=== PATIENT | female | born 1955 | race Caucasian/White ===

== ENCOUNTER 2024-01-24 09:11 | Observation (INO) | payer MEDICARE ==
--- NOTE | 2024-01-24 09:41 | ERPHSYRPT ---
- History of Present Illness Time Seen by Provider: 01/24/24 09:40 Source: patient Exam Limitations: no limitations Physician History: 68-year-old female presents to our ED for evaluation of generalized weakness and fatigue noncompliant with home medication regimen possible dehydration. Patient states she is currently on Ozempic to lose weight. Patient has lost 69 pounds. Patient is a known diabetic. Patient states recently she has been feeling weak. Patient has not taken her medications because of her weakness. She has not eaten very much. Symptoms are progressive. Symptoms are moderate in intensity. No specific worsening or improving factors. Patient denies pain. She voices no other complaints or concerns at this time. Portions of this note were created with voice recognition technology. There may be grammatical, spelling, punctuation or sound alike errors Timing/Duration: today Severity: moderate Modifying Factors: Improves With: nothing Associated Symptoms: denies symptoms Allergies/Adverse Reactions: morphine Allergy (Verified 01/24/24 09:55) naproxen Allergy (Verified 01/24/24 09:55) Sulfa (Sulfonamide Antibiotics) Allergy (Verified 01/24/24 09:55) Tetanus Vaccines and Toxoid Allergy (Verified 01/24/24 09:55) Home Medications: Amlodipine Besylate 5 mg [Norvasc 5 mg] 5 mg PO DAILY 01/24/24 [History] Fluoxetine HCl [Prozac] 40 mg PO DAILY 01/24/24 [History] Metformin HCl 500 mg [Glucophage 500 MG] 500 mg PO BIDWM 01/24/24 [History] Semaglutide [Ozempic] 1 mg SQ WEEKLY 01/24/24 [History] Simvastatin 20Mg [Zocor 20Mg] 20 mg PO DAILY 01/24/24 [History] - Review of Systems Constitutional: No Symptoms, No Fever, No Chills Eyes: No Symptoms Ears, Nose, & Throat: No Symptoms Respiratory: No Symptoms, No Cough, No Dyspnea Cardiac: No Symptoms, No Chest Pain, No Edema, No Syncope Abdominal/Gastrointestinal: No Symptoms, No Abdominal Pain, No Nausea, No Vomiting, No Diarrhea Genitourinary Symptoms: No Symptoms, No Dysuria Musculoskeletal: No Symptoms, No Back Pain, No Neck Pain Skin: No Symptoms, No Rash Neurological: No Symptoms, No Dizziness, No Focal Weakness, No Sensory Changes Psychological: No Symptoms Endocrine: No Symptoms Hematologic/Lymphatic: No Symptoms Immunological/Allergic: No Symptoms All Other Systems: Reviewed and Negative - Nursing Vital Signs Nursing Vital Signs: Initial Vital Signs Temperature 100.1 F 01/24/24 09:40 Pulse Rate 88 01/24/24 09:40 Respiratory Rate 23 01/24/24 09:40 Blood Pressure 102/71 01/24/24 09:40 O2 Sat by Pulse Oximetry 97 01/24/24 09:40 Pain Scale Pain Intensity 2 - Physical Exam General Appearance: no apparent distress, alert Eye Exam: PERRL/EOMI, eyes nml inspection Ears, Nose, Throat Exam: normal ENT inspection, TMs normal, pharynx normal, moist mucous membranes Neck Exam: normal inspection, non-tender, supple, full range of motion Respiratory Exam: normal breath sounds, lungs clear, airway intact, No respiratory distress Cardiovascular Exam: regular rate/rhythm, normal heart sounds, normal peripheral pulses Gastrointestinal/Abdomen Exam: soft, normal bowel sounds, No tenderness, No mass Back Exam: normal inspection, normal range of motion, No CVA tenderness, No vertebral tenderness Extremity Exam: normal inspection, normal range of motion, pelvis stable Neurologic Exam: alert, oriented x 3, cooperative, normal mood/affect, nml cerebellar function, nml station & gait, sensation nml, No motor deficits Skin Exam: normal color, warm, dry, No rash Lymphatic Exam: No adenopathy O2 Delivery: Room Air - Course Nursing assessment & vital signs reviewed: Yes Ordered Tests: Active Orders 24 hr Category Date Time Status Vb Developer STAT Care 01/24/24 09:39 Active EKG-ER Only STAT Care 01/24/24 09:38 Active IV Insertion STAT Care 01/24/24 09:38 Active Pulse Oximetry (ED) STAT Care 01/24/24 09:38 Active CBC W DIFF Stat Lab 01/24/24 09:50 Completed CMP Stat Lab 01/24/24 09:50 Completed LIPASE Stat Lab 01/24/24 09:50 Completed Lactic Acid Stat Lab 01/24/24 09:38 Completed Manual Differential NC Stat Lab 01/24/24 09:50 Completed TROPONIN Q4H Lab 01/24/24 09:50 Completed TROPONIN Q4H Lab 01/24/24 13:45 Ordered TROPONIN Q4H Lab 01/24/24 17:45 Ordered UA W/RFX UR CULTURE Stat Lab 01/24/24 10:18 Ordered Transfer Order Routine Transfer 01/24/24 Ordered Medication Summary Discontinued Medications Generic Name Dose Route Start Last Admin Trade Name Julian PRN Reason Stop Dose Admin Sodium Chloride 1,000 mls @ 999 mls/hr 01/24/24 09:38 01/24/24 11:40 Sodium Chloride 0.9% 1000 Ml IV 01/24/24 10:38 Infused .Q1H1M STA Infusion Sodium Chloride Confirm 01/24/24 10:29 Sodium Chloride 0.9% 1000 Ml Administered 01/24/24 10:30 Dose 1,000 mls @ ud .ROUTE .STK-MED ONE Lab/Rad Data: Laboratory Result Diagrams 01/24/24 09:50 01/24/24 09:50 Laboratory Results 01/24/24 01/24/24 01/24/24 Range/Units 09:50 09:50 09:50 WBC 6.2 (3.98-10.04) x10^3/uL RBC 3.98 (3.93-5.22) x10^6/uL Hgb 12.7 (11.2-15.7) g/dL Hct 35.6 (34.1-44.9) % MCV 89.4 (79.4-94.8) fL MCH 31.9 (25.6-32.2) pg MCHC 35.7 H (32.2-35.5) g/dL RDW 11.9 (11.7-14.4) % Plt Count 137 L (182-369) x10^3/uL MPV 9.9 (9.4-12.3) fL Segmented Neutrophils 54 H (1.56-6.13) % Lymphocytes (Manual) 27 (24-44) % Monocytes (Manual) 13 H (0.0-12.0) % Atypical Lymphocytes 6 % Platelet Estimate DECREASED (NORMAL) RBC Morphology NORMAL Sodium 127 L (135-145) mmol/L Potassium 3.8 (3.5-5.1) mmol/L Chloride 97 L (98-107) mmol/L Carbon Dioxide 22 (22-30) mmol/L Anion Gap 11.5 (5-15) MEQ/L BUN 11 (7-17) mg/dL Creatinine 0.78 (0.52-1.04) mg/dL Estimated GFR 82.2 ML/MIN Glucose 135 H (74-106) mg/dL Lactic Acid (0.4-2.0) Calcium 8.6 (8.4-10.2) mg/dL Total Bilirubin 0.90 (0.2-1.3) mg/dL AST 67 H (14-36) U/L ALT 37 H (0-35) U/L Alkaline Phosphatase 79 (38-126) U/L Troponin I < 0.012 (0.000-0.033) ng/mL Serum Total Protein 7.1 (6.3-8.2) g/dL Albumin 3.5 (3.5-5.0) g/dL Lipase 263 (23-300) U/L 01/24/24 Range/Units 09:38 WBC (3.98-10.04) x10^3/uL RBC (3.93-5.22) x10^6/uL Hgb (11.2-15.7) g/dL Hct (34.1-44.9) % MCV (79.4-94.8) fL MCH (25.6-32.2) pg MCHC (32.2-35.5) g/dL RDW (11.7-14.4) % Plt Count (182-369) x10^3/uL MPV (9.4-12.3) fL Segmented Neutrophils (1.56-6.13) % Lymphocytes (Manual) (24-44) % Monocytes (Manual) (0.0-12.0) % Atypical Lymphocytes % Platelet Estimate (NORMAL) RBC Morphology Sodium (135-145) mmol/L Potassium (3.5-5.1) mmol/L Chloride (98-107) mmol/L Carbon Dioxide (22-30) mmol/L Anion Gap (5-15) MEQ/L BUN (7-17) mg/dL Creatinine (0.52-1.04) mg/dL Estimated GFR ML/MIN Glucose (74-106) mg/dL Lactic Acid 1.2 (0.4-2.0) Calcium (8.4-10.2) mg/dL Total Bilirubin (0.2-1.3) mg/dL AST (14-36) U/L ALT (0-35) U/L Alkaline Phosphatase (38-126) U/L Troponin I (0.000-0.033) ng/mL Serum Total Protein (6.3-8.2) g/dL Albumin (3.5-5.0) g/dL Lipase (23-300) U/L - Progress Progress: improved Progress Note: 68-year-old female presents to emergency department for evaluation of progressive generalized weakness. Patient states that she has not been compliant with her home medication regimen for 3 weeks. Patient states she feels too weak to take her medications. Symptoms have been progressive. Symptoms are moderate in intensity. No specific worsening or improving factors. Physical exam essentially nonremarkable. Workup reveals hyponatremia of 127. IV fluids initiated. Patient is still symptomatic. Hyponatremia takes a period of time to correct. Patient will require hospitalization for further evaluation and treatment. Patient will need to be restarted on her home meds. Patient will be admitted for further evaluation and treatment. Plan of care discussed with patient. She agrees to admission [facility] for further evaluation and treatment. Case discussed with hospitalist Dr. Prajapati subs admission at 12:03 PM. Portions of this note were created with voice recognition technology. There may be grammatical, spelling, punctuation or sound alike errors Complexity of problem addressed is moderate acute complicated. No critical care time. Complex of data reviewed and analyzed is sensitive. Management discussed with hospitalist. Test ordered test reviewed results analyzed and correlated clinically with history and physical exam. Risk of complication and or risk of morbidity/mortality patient management is high. Patient requires hospitalization for further evaluation and treatment. Vital stable. Time spent admit patient approximately 20 minutes. Plan of care established for shared decision making. No social determinants of health present to impede follow-up. Portions of this note were created with voice recognition technology. There may be grammatical, spelling, punctuation or sound alike errors 01/24/24 12:07 Counseled pt/family regarding: lab results, diagnosis, need for follow-up - Departure Departure Disposition: Observation Clinical Impression: Depressed mood, Non compliance w medication regimen, Generalized weakness, Hyponatremia Condition: Stable Critical Care Time: No Referrals: ERA RODRIGUEZ [Primary Care Provider] - Follow up/PCP as directed
[2024-01-24 09:56] LABS: Hematocrit 35.6 % (34.1-44.9); Hemoglobin 12.7 g/dL (11.2-15.7); Mean Cell Volume 89.4 fL (79.4-94.8); Mean Corpuscular Hemoglobin 31.9 pg (25.6-32.2); Mean Corpuscular Hgb Concent. 35.7 g/dL (32.2-35.5); Mean Platelet Volume 9.9 fL (9.4-12.3); Platelet Count 137 x10^3/uL (182-369); Red Blood Count 3.98 x10^6/uL (3.93-5.22); Red Cell Distribution Width 11.9 % (11.7-14.4); White Blood Count 6.2 x10^3/uL (3.98-10.04)
[2024-01-24 10:06] LABS: ALBUMIN 3.5 g/dL (3.5-5.0); ANION GAP 11.5 MEQ/L (5-15); BILIRUBIN,TOTAL 0.9 mg/dL (0.2-1.3); Calcium 8.6 mg/dL (8.4-10.2); Creatinine 1 0.78 mg/dL (0.52-1.04); EST GLOMERULAR FILTRATION RATE 82.2 ML/MIN; Potassium 3.8 mmol/L (3.5-5.1); Total Protein 7.1 g/dL (6.3-8.2)
[2024-01-24] MEDS: Sodium Chloride 0.9% 1000 ML 1,000 ML IV STA (10:29)
[2024-01-24] MEDS ORDERED: Sodium Chloride 0.9% 1000 ML 1,000 ML ONE (10:29)
[2024-01-24 10:41] LABS: ATYPICAL LYMPHS 6 %; Lymphocytes 27 % (24-44); Monocyte 13 % (0.0-12.0); Neutrophils 54 % (1.56-6.13); Total Cells Counted 100
[2024-01-24 10:42] LABS: Platelet Estimate DECREASED (NORMAL)
[2024-01-24 13:11] LABS: Appearance Clear (Clear); Bacteria None Seen /HPF (None Seen); Bilirubin Negative (Negative); Blood Negative (Negative); Epithelial Cells None Seen /HPF (None Seen); Glucose, Urine Negative (Negative); Hyaline Casts NONE SEEN /LPF (0-2); Ketones Negative (Negative); Leukocyte Esterase Negative (Negative); Nitrite Negative (Negative); Protein,Urine Dip Negative (Negative); RBC 0-2 /HPF (0-5); Specific Gravity <=1.005 (1.005-1.030); WBC 0-2 /HPF (0-5)
[2024-01-24 13:18] LABS: ADD URINE CULTURE? NO (NO)
--- NOTE | 2024-01-24 17:37 | PCM.HP ---
History of Present Illness - Chief Complaint Chief Complaint: HYPONATREMIA, WEAKNESS Date: 01/24/24 History of Present Illness: is a 68 year old female with a pmhx of DMII, HTN, and depression who presented to ED 01/24/24 with complaints of weakness and fatigue with an onset of about one week ago. 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 She reports that she has been on ozempic for about one year with a 69 pound weight loss. She generally tolerates the injection well with minimal side effects. She does struggle to consume adequate oral intake. Due to weakness she has not taken her prescribed home medications in about a week including her depression medication. Upon arrival to ED, patient mildly febrile. Lab findings remarkable for hyponatremia and elevated LFT's. Patient received fluid bolus in ED. - Review of Systems Constitutional: Fever, Chills, Fatigue, Weakness Eyes: No Symptoms Ears, Nose, & Throat: No Symptoms Respiratory: Cough Cardiac: No Symptoms Abdominal/Gastrointestinal: No Symptoms Genitourinary Symptoms: Frequency Musculoskeletal: No Symptoms Skin: No Symptoms Psychological: Depression Endocrine: No Symptoms Hematologic/Lymphatic: No Symptoms Immunological/Allergic: No Symptoms Medications & Allergies Home Medications: Home Medication List Amlodipine Besylate 5 mg [Norvasc 5 mg] 5 mg PO DAILY 01/24/24 [History Confirmed 01/24/24] Fluoxetine HCl [Prozac] 40 mg PO DAILY 01/24/24 [History Confirmed 01/24/24] Metformin HCl 500 mg [Glucophage 500 MG] 500 mg PO BIDWM 01/24/24 [History Confirmed 01/24/24] Semaglutide [Ozempic] 1 mg SQ WEEKLY 01/24/24 [History Confirmed 01/24/24] Simvastatin 20Mg [Zocor 20Mg] 20 mg PO DAILY 01/24/24 [History Confirmed 01/24/24] Allergies/Adverse Reactions: Allergies Allergy/AdvReac Type Severity Reaction Status Date / Time morphine Allergy Verified 01/24/24 09:55 naproxen Allergy Verified 01/24/24 09:55 Sulfa (Sulfonamide Allergy Verified 01/24/24 09:55 Antibiotics) Tetanus Vaccines and Toxoid Allergy Verified 09/03/24 09:55 - Past Medical History Past Medical History: Yes Neurological History: No Pertinent History ENT History: No Pertinent History Cardiac History: High Cholesterol, Hypertension Respiratory History: No Pertinent History Endocrine Medical History: Diabetes Type II Musculoskelatal History: No Pertinent History GI Medical History: No Pertinent History History: No Pertinent History Pyscho-Social History: Depression Reproductive Disorders: No Pertinent History - Past Surgical History Past Surgical History: Yes Neuro Surgical History: No Pertinent History Cardiac History: No Pertinent History Respiratory Surgery: No Pertinent History GI Surgical History: Cholecystectomy, Exploratory Laparoscopy Genitourinary Surgical Hx: No Pertinent History Musculskeletal Surgical Hx: No Pertinent History Female Surgical History: Tubal Ligation Other Surgical History: lumpectomy on the left breast - Social History Smoking Status: Never smoker Exposure to second hand smoke: No Alcohol: None Drug Use: none - Social Determinants of Health Will the patient participate in the screening: Yes Do you worry about a steady place to live?: No Do you have any problems with any of the following?: No known problems In the past 12 months,have you had to go without utilities?: No Have you or anyone in your house had to go without enough: No Transportation Issues: No Has anyone in your support network made you feel unsafe?: No Does the patient want assistance with any of the above?: No - Physical Exam Vital Signs: Vital Signs - 24 hr Temp Pulse Resp BP BP Pulse Ox 01/24/24 16:02 89 97 01/24/24 15:30 102/50 01/24/24 15:00 93 H 34 H 118/62 94 L 01/24/24 14:30 87 16 112/59 98 01/24/24 14:20 79 29 H 98 01/24/24 14:10 82 18 99 01/24/24 14:05 88 29 H 91 L 01/24/24 13:30 132/54 01/24/24 13:00 83 18 119/68 95 01/24/24 12:30 79 28 H 108/73 96 01/24/24 12:04 78 29 H 131/66 99 01/24/24 12:03 80 29 H 83 L 01/24/24 11:30 80 23 109/61 97 01/24/24 11:00 81 25 H 124/63 97 01/24/24 10:30 79 20 110/67 96 01/24/24 10:00 87 16 120/58 95 01/24/24 09:40 100.1 F 88 23 102/71 96 General Appearance: no apparent distress Neurologic Exam: alert, oriented x 3, cooperative Eye Exam: PERRL/EOMI Ears, Nose, Throat Exam: normal ENT inspection Neck Exam: normal inspection Respiratory Exam: normal breath sounds, lungs clear Cardiovascular Exam: regular rate/rhythm, normal heart sounds Gastrointestinal/Abdomen Exam: soft, normal bowel sounds Pelvic Exam: not done Rectal Exam: deferred Back Exam: normal inspection Extremity Exam: normal inspection Skin Exam: normal color Results - Labs Lab/Micro Results: Lab Results-Last 24 Hours 01/24/24 01/24/24 01/24/24 Range/Units 09:38 09:50 09:50 WBC 6.2 (3.98-10.04) x10^3/uL RBC 3.98 (3.93-5.22) x10^6/uL Hgb 12.7 (11.2-15.7) g/dL Hct 35.6 (34.1-44.9) % MCV 89.4 (79.4-94.8) fL MCH 31.9 (25.6-32.2) pg MCHC 35.7 H (32.2-35.5) g/dL RDW 11.9 (11.7-14.4) % Plt Count 137 L (182-369) x10^3/uL MPV 9.9 (9.4-12.3) fL Segmented Neutrophils 54 H (1.56-6.13) % Lymphocytes (Manual) 27 (24-44) % Monocytes (Manual) 13 H (0.0-12.0) % Atypical Lymphocytes 6 % Platelet Estimate DECREASED (NORMAL) RBC Morphology NORMAL Sodium 127 L (135-145) mmol/L Potassium 3.8 (3.5-5.1) mmol/L Chloride 97 L (98-107) mmol/L Carbon Dioxide 22 (22-30) mmol/L Anion Gap 11.5 (5-15) MEQ/L BUN 11 (7-17) mg/dL Creatinine 0.78 (0.52-1.04) mg/dL Estimated GFR 82.2 ML/MIN Glucose 135 H (74-106) mg/dL Lactic Acid 1.2 (0.4-2.0) Calcium 8.6 (8.4-10.2) mg/dL Total Bilirubin 0.90 (0.2-1.3) mg/dL AST 67 H (14-36) U/L ALT 37 H (0-35) U/L Alkaline Phosphatase 79 (38-126) U/L Troponin I (0.000-0.033) ng/mL Serum Total Protein 7.1 (6.3-8.2) g/dL Albumin 3.5 (3.5-5.0) g/dL Lipase 263 (23-300) U/L Urine Color (Yellow) Urine Appearance (Clear) Urine pH (4.6-8.0) Ur Specific Ubly (1.005-1.030) Urine Protein (Negative) Urine Glucose (UA) (Negative) mg/dL Urine Ketones (Negative) Urine Blood (Negative) Urine Nitrite (Negative) Urine Bilirubin (Negative) Urine Urobilinogen (0.2) mg/dL Ur Leukocyte Esterase (Negative) U Hyaline Cast (Auto) (0-2) /LPF Urine Microscopic RBC (0-5) /HPF Urine Microscopic WBC (0-5) /HPF Ur Epithelial Cells (None Seen) /HPF Urine Bacteria (None Seen) /HPF Urine Culture Reflexed (NO) 01/24/24 01/24/24 01/24/24 Range/Units 09:50 10:18 14:29 WBC (3.98-10.04) x10^3/uL RBC (3.93-5.22) x10^6/uL Hgb (11.2-15.7) g/dL Hct (34.1-44.9) % MCV (79.4-94.8) fL MCH (25.6-32.2) pg MCHC (32.2-35.5) g/dL RDW (11.7-14.4) % Plt Count (182-369) x10^3/uL MPV (9.4-12.3) fL Segmented Neutrophils (1.56-6.13) % Lymphocytes (Manual) (24-44) % Monocytes (Manual) (0.0-12.0) % Atypical Lymphocytes % Platelet Estimate (NORMAL) RBC Morphology Sodium (135-145) mmol/L Potassium (3.5-5.1) mmol/L Chloride (98-107) mmol/L Carbon Dioxide (22-30) mmol/L Anion Gap (5-15) MEQ/L BUN (7-17) mg/dL Creatinine (0.52-1.04) mg/dL Estimated GFR ML/MIN Glucose (74-106) mg/dL Lactic Acid (0.4-2.0) Calcium (8.4-10.2) mg/dL Total Bilirubin (0.2-1.3) mg/dL AST (14-36) U/L ALT (0-35) U/L Alkaline Phosphatase (38-126) U/L Troponin I < 0.012 < 0.012 (0.000-0.033) ng/mL Serum Total Protein (6.3-8.2) g/dL Albumin (3.5-5.0) g/dL Lipase (23-300) U/L Urine Color Yellow (Yellow) Urine Appearance Clear (Clear) Urine pH 7.0 (4.6-8.0) Ur Specific Ubly <=1.005 (1.005-1.030) Urine Protein Negative (Negative) Urine Glucose (UA) Negative (Negative) mg/dL Urine Ketones Negative (Negative) Urine Blood Negative (Negative) Urine Nitrite Negative (Negative) Urine Bilirubin Negative (Negative) Urine Urobilinogen 1.0 A (0.2) mg/dL Ur Leukocyte Esterase Negative (Negative) U Hyaline Cast (Auto) NONE SEEN (0-2) /LPF Urine Microscopic RBC 0-2 (0-5) /HPF Urine Microscopic WBC 0-2 (0-5) /HPF Ur Epithelial Cells None Seen (None Seen) /HPF Urine Bacteria None Seen (None Seen) /HPF Urine Culture Reflexed NO (NO) Assessment/Plan (1) Hyponatremia Current Visit: Yes Status: Acute Assessment & Plan: -NS at 100ml/hr -Most likely secondary to hypovolemia -TSH, lipid, urine sodium/osmo -BMP q4h Code(s): E87.1 - HYPO-OSMOLALITY AND HYPONATREMIA (2) HTN (hypertension) Current Visit: Yes Status: Acute Assessment & Plan: -stable - continue home meds Code(s): I10 - ESSENTIAL (PRIMARY) HYPERTENSION (3) Type 2 diabetes mellitus Current Visit: Yes Status: Acute Assessment & Plan: -on ozempic -states she is prescribed metformin but does not take it -a1c -SSI -ADA diet (4) Cough Current Visit: Yes Status: Acute Assessment & Plan: -Patient febrile in ED, obtain cxr/resp panel- viral Code(s): R05.9 - COUGH, UNSPECIFIED (5) Non compliance w medication regimen Current Visit: Yes Status: Acute Assessment & Plan: -secondary to weakness, will continue home meds VTE: lovenox PPI: Protonix Dispo: 1-2 days Code status: SCO Code(s): Z91.148 - PATIENT'S OTHER NONCOMPL WITH MEDS REGIMEN FOR OTHER REASON (6) Depression Current Visit: Yes Status: Acute Assessment & Plan: -continue home medications Code(s): F32.A - DEPRESSION, UNSPECIFIED
[2024-01-24] MEDS ORDERED: HUMALOG SQ PRN (17:44)
[2024-01-24] MEDS ORDERED: TYLENOL 325 MG PO PRN (17:44)
[2024-01-24] MEDS ORDERED: Zofran 4 MG/2 ML VIAL IV PRN (17:44)
[2024-01-24] MEDS: PROTONIX 40 MG IV IV SCH (18:45)
[2024-01-24 18:46] LABS: Calcium 8.1 mg/dL (8.4-10.2); Creatinine 1 0.69 mg/dL (0.52-1.04); EST GLOMERULAR FILTRATION RATE 93.9 ML/MIN; Potassium 3.9 mmol/L (3.5-5.1); TSH, 3RD Generation 2.136 mIU/L (0.470-4.680)
[2024-01-24] MEDS: Sodium Chloride 0.9% 1000 ML 1,000 ML IV SCH (19:28)
--- NOTE | 2024-01-25 05:16 | PCM.NOTE ---
Date and Time: 01/25/24 0515 Subjective Assessment: is a 68 year old female with a pmhx of DMII, HTN, and depression who presented to ED 01/24/24 with complaints of weakness and fatigue with an onset of about one week ago. 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 She reports that she has been on ozempic for about one year with a 69 pound weight loss. She generally tolerates the injection well with minimal side effects. She does struggle to consume adequate oral intake. Due to weakness she has not taken her prescribed home medications in about a week including her depression medication. Upon arrival to ED, patient mildly febrile. Lab findings remarkable for hyponatremia and elevated LFT's. Patient received fluid bolus in ED. 01/25/24: Met with patient bedside. Endorsing that she is feeling much better today although still weak. She did have a mild temperature last night of 100. CXR with no acute etiology. Sodium levels remain low today with not much increase. Plan for fluid restriction and sodium chloride tabs. Will recheck labs this afternoon. - Review of Systems Constitutional: Weakness Eyes: No Symptoms Ears, Nose, & Throat: No Symptoms Respiratory: Cough Cardiac: No Symptoms Abdominal/Gastrointestinal: No Symptoms Genitourinary Symptoms: No Symptoms Musculoskeletal: No Symptoms Skin: No Symptoms Neurological: No Symptoms Psychological: No Symptoms Endocrine: No Symptoms Hematologic/Lymphatic: No Symptoms Immunological/Allergic: No Symptoms Objective Exam General Appearance: no apparent distress Neurologic Exam: alert, oriented x 3, cooperative Skin Exam: normal color Eye Exam: PERRL Ears, Nose, Throat Exam: normal ENT inspection Neck Exam: normal inspection Respiratory Exam: normal breath sounds, lungs clear Cardiovascular Exam: regular rate/rhythm, normal heart sounds Gastrointestinal/Abdomen Exam: soft, normal bowel sounds Extremity Exam: normal inspection Back Exam: normal inspection Pelvic Exam: deferred Rectal Exam: deferred Objective Data Vital Signs: Vital Signs - 24 hr Temp Pulse Resp BP BP Pulse Ox 01/25/24 04:00 98.3 F 89 17 120/57 94 L 01/25/24 00:00 98.9 F 80 16 110/56 99 01/24/24 21:24 97 01/24/24 20:00 100.0 F 86 17 114/55 96 09/03/24 16:02 89 97 01/24/24 15:30 102/50 01/24/24 15:00 93 H 34 H 118/62 94 L 01/24/24 14:30 87 16 112/59 98 01/24/24 14:20 79 29 H 98 01/24/24 14:10 82 18 99 01/24/24 14:05 88 29 H 91 L 01/24/24 13:30 132/54 01/24/24 13:00 83 18 119/68 95 01/24/24 12:30 79 28 H 108/73 96 01/24/24 12:04 78 29 H 131/66 99 01/24/24 12:03 80 29 H 83 L 01/24/24 11:30 80 23 109/61 97 01/24/24 11:00 81 25 H 124/63 97 01/24/24 10:30 79 20 110/67 96 01/24/24 10:00 87 16 120/58 95 01/24/24 09:40 100.1 F 88 23 102/71 96 Pain Assessment - Last Documented Pain Intensity 0 Intake and Output: Intake & Output 01/22/24 01/23/24 01/24/24 01/25/24 11:59 11:59 11:59 11:59 Intake Total 1400 Balance 1400 Weight 78.471 kg 80.5 kg Lab Results: Lab Results-Last 24 Hours 01/24/24 01/24/24 01/24/24 Range/Units 09:38 09:50 09:50 WBC 6.2 (3.98-10.04) x10^3/uL RBC 3.98 (3.93-5.22) x10^6/uL Hgb 12.7 (11.2-15.7) g/dL Hct 35.6 (34.1-44.9) % MCV 89.4 (79.4-94.8) fL MCH 31.9 (25.6-32.2) pg MCHC 35.7 H (32.2-35.5) g/dL RDW 11.9 (11.7-14.4) % Plt Count 137 L (182-369) x10^3/uL MPV 9.9 (9.4-12.3) fL Segmented Neutrophils 54 H (1.56-6.13) % Lymphocytes (Manual) 27 (24-44) % Monocytes (Manual) 13 H (0.0-12.0) % Atypical Lymphocytes 6 % Platelet Estimate DECREASED (NORMAL) RBC Morphology NORMAL Sodium 127 L (135-145) mmol/L Potassium 3.8 (3.5-5.1) mmol/L Chloride 97 L (98-107) mmol/L Carbon Dioxide 22 (22-30) mmol/L Anion Gap 11.5 (5-15) MEQ/L BUN 11 (7-17) mg/dL Creatinine 0.78 (0.52-1.04) mg/dL Estimated GFR 82.2 ML/MIN Glucose 135 H (74-106) mg/dL POC Glucometer (74 to 106) mg/dL Hemoglobin A1c (4.5-6.0) % Lactic Acid 1.2 (0.4-2.0) Calcium 8.6 (8.4-10.2) mg/dL Total Bilirubin 0.90 (0.2-1.3) mg/dL AST 67 H (14-36) U/L ALT 37 H (0-35) U/L Alkaline Phosphatase 79 (38-126) U/L Troponin I (0.000-0.033) ng/mL Serum Total Protein 7.1 (6.3-8.2) g/dL Albumin 3.5 (3.5-5.0) g/dL Lipase 263 (23-300) U/L TSH 3rd Generation (0.470-4.680) mIU/L Urine Color (Yellow) Urine Appearance (Clear) Urine pH (4.6-8.0) Ur Specific [place] (1.005-1.030) Urine Protein (Negative) Urine Glucose (UA) (Negative) mg/dL Urine Ketones (Negative) Urine Blood (Negative) Urine Nitrite (Negative) Urine Bilirubin (Negative) Urine Urobilinogen (0.2) mg/dL Ur Leukocyte Esterase (Negative) U Hyaline Cast (Auto) (0-2) /LPF Urine Microscopic RBC (0-5) /HPF Urine Microscopic WBC (0-5) /HPF Ur Epithelial Cells (None Seen) /HPF Urine Bacteria (None Seen) /HPF Urine Culture Reflexed (NO) Urine Sodium (30-90) mmol/L 01/24/24 01/24/24 01/24/24 Range/Units 09:50 09:50 10:18 WBC (3.98-10.04) x10^3/uL RBC (3.93-5.22) x10^6/uL Hgb (11.2-15.7) g/dL Hct (34.1-44.9) % MCV (79.4-94.8) fL MCH (25.6-32.2) pg MCHC (32.2-35.5) g/dL RDW (11.7-14.4) % Plt Count (182-369) x10^3/uL MPV (9.4-12.3) fL Segmented Neutrophils (1.56-6.13) % Lymphocytes (Manual) (24-44) % Monocytes (Manual) (0.0-12.0) % Atypical Lymphocytes % Platelet Estimate (NORMAL) RBC Morphology Sodium (135-145) mmol/L Potassium (3.5-5.1) mmol/L Chloride (98-107) mmol/L Carbon Dioxide (22-30) mmol/L Anion Gap (5-15) MEQ/L BUN (7-17) mg/dL Creatinine (0.52-1.04) mg/dL Estimated GFR ML/MIN Glucose (74-106) mg/dL POC Glucometer (74 to 106) mg/dL Hemoglobin A1c 5.28 (4.5-6.0) % Lactic Acid (0.4-2.0) Calcium (8.4-10.2) mg/dL Total Bilirubin (0.2-1.3) mg/dL AST (14-36) U/L ALT (0-35) U/L Alkaline Phosphatase (38-126) U/L Troponin I < 0.012 (0.000-0.033) ng/mL Serum Total Protein (6.3-8.2) g/dL Albumin (3.5-5.0) g/dL Lipase (23-300) U/L TSH 3rd Generation (0.470-4.680) mIU/L Urine Color Yellow (Yellow) Urine Appearance Clear (Clear) Urine pH 7.0 (4.6-8.0) Ur Specific [place] <=1.005 (1.005-1.030) Urine Protein Negative (Negative) Urine Glucose (UA) Negative (Negative) mg/dL Urine Ketones Negative (Negative) Urine Blood Negative (Negative) Urine Nitrite Negative (Negative) Urine Bilirubin Negative (Negative) Urine Urobilinogen 1.0 A (0.2) mg/dL Ur Leukocyte Esterase Negative (Negative) U Hyaline Cast (Auto) NONE SEEN (0-2) /LPF Urine Microscopic RBC 0-2 (0-5) /HPF Urine Microscopic WBC 0-2 (0-5) /HPF Ur Epithelial Cells None Seen (None Seen) /HPF Urine Bacteria None Seen (None Seen) /HPF Urine Culture Reflexed NO (NO) Urine Sodium (30-90) mmol/L 01/24/24 01/24/24 01/24/24 Range/Units 10:18 14:29 17:20 WBC (3.98-10.04) x10^3/uL RBC (3.93-5.22) x10^6/uL Hgb (11.2-15.7) g/dL Hct (34.1-44.9) % MCV (79.4-94.8) fL MCH (25.6-32.2) pg MCHC (32.2-35.5) g/dL RDW (11.7-14.4) % Plt Count (182-369) x10^3/uL MPV (9.4-12.3) fL Segmented Neutrophils (1.56-6.13) % Lymphocytes (Manual) (24-44) % Monocytes (Manual) (0.0-12.0) % Atypical Lymphocytes % Platelet Estimate (NORMAL) RBC Morphology Sodium (135-145) mmol/L Potassium (3.5-5.1) mmol/L Chloride (98-107) mmol/L Carbon Dioxide (22-30) mmol/L Anion Gap (5-15) MEQ/L BUN (7-17) mg/dL Creatinine (0.52-1.04) mg/dL Estimated GFR ML/MIN Glucose (74-106) mg/dL POC Glucometer (74 to 106) mg/dL Hemoglobin A1c (4.5-6.0) % Lactic Acid (0.4-2.0) Calcium (8.4-10.2) mg/dL Total Bilirubin (0.2-1.3) mg/dL AST (14-36) U/L ALT (0-35) U/L Alkaline Phosphatase (38-126) U/L Troponin I < 0.012 < 0.012 (0.000-0.033) ng/mL Serum Total Protein (6.3-8.2) g/dL Albumin (3.5-5.0) g/dL Lipase (23-300) U/L TSH 3rd Generation (0.470-4.680) mIU/L Urine Color (Yellow) Urine Appearance (Clear) Urine pH (4.6-8.0) Ur Specific [place] (1.005-1.030) Urine Protein (Negative) Urine Glucose (UA) (Negative) mg/dL Urine Ketones (Negative) Urine Blood (Negative) Urine Nitrite (Negative) Urine Bilirubin (Negative) Urine Urobilinogen (0.2) mg/dL Ur Leukocyte Esterase (Negative) U Hyaline Cast (Auto) (0-2) /LPF Urine Microscopic RBC (0-5) /HPF Urine Microscopic WBC (0-5) /HPF Ur Epithelial Cells (None Seen) /HPF Urine Bacteria (None Seen) /HPF Urine Culture Reflexed (NO) Urine Sodium 14 L (30-90) mmol/L 01/24/24 01/24/24 Range/Units 17:20 21:07 WBC (3.98-10.04) x10^3/uL RBC (3.93-5.22) x10^6/uL Hgb (11.2-15.7) g/dL Hct (34.1-44.9) % MCV (79.4-94.8) fL MCH (25.6-32.2) pg MCHC (32.2-35.5) g/dL RDW (11.7-14.4) % Plt Count (182-369) x10^3/uL MPV (9.4-12.3) fL Segmented Neutrophils (1.56-6.13) % Lymphocytes (Manual) (24-44) % Monocytes (Manual) (0.0-12.0) % Atypical Lymphocytes % Platelet Estimate (NORMAL) RBC Morphology Sodium 128 L (135-145) mmol/L Potassium 3.9 (3.5-5.1) mmol/L Chloride 99 (98-107) mmol/L Carbon Dioxide 24 (22-30) mmol/L Anion Gap 9.0 (5-15) MEQ/L BUN 11 (7-17) mg/dL Creatinine 0.69 (0.52-1.04) mg/dL Estimated GFR 93.9 ML/MIN Glucose 133 H (74-106) mg/dL POC Glucometer 103 (74 to 106) mg/dL Hemoglobin A1c (4.5-6.0) % Lactic Acid (0.4-2.0) Calcium 8.1 L (8.4-10.2) mg/dL Total Bilirubin (0.2-1.3) mg/dL AST (14-36) U/L ALT (0-35) U/L Alkaline Phosphatase (38-126) U/L Troponin I (0.000-0.033) ng/mL Serum Total Protein (6.3-8.2) g/dL Albumin (3.5-5.0) g/dL Lipase (23-300) U/L TSH 3rd Generation 2.136 (0.470-4.680) mIU/L Urine Color (Yellow) Urine Appearance (Clear) Urine pH (4.6-8.0) Ur Specific [place] (1.005-1.030) Urine Protein (Negative) Urine Glucose (UA) (Negative) mg/dL Urine Ketones (Negative) Urine Blood (Negative) Urine Nitrite (Negative) Urine Bilirubin (Negative) Urine Urobilinogen (0.2) mg/dL Ur Leukocyte Esterase (Negative) U Hyaline Cast (Auto) (0-2) /LPF Urine Microscopic RBC (0-5) /HPF Urine Microscopic WBC (0-5) /HPF Ur Epithelial Cells (None Seen) /HPF Urine Bacteria (None Seen) /HPF Urine Culture Reflexed (NO) Urine Sodium (30-90) mmol/L Radiology Exams: Radiology Procedures Category Date Time Status CHEST 1 VIEW (PORTABLE) Stat Exams 01/24/24 17:44 Taken Assessment/Plan (1) Hyponatremia Current Visit: Yes Status: Acute Assessment & Plan: -NS at 100ml/hr -Most likely secondary to hypovolemia -TSH, lipid, urine sodium/osmo -BMP q4h 01/24: -Dc fluids -1.8L fluid restriction -sodium chloride tabs -TSH wNL -urine sodium low Code(s): E87.1 - HYPO-OSMOLALITY AND HYPONATREMIA (2) HTN (hypertension) Current Visit: Yes Status: Acute Assessment & Plan: -stable - continue home meds Code(s): I10 - ESSENTIAL (PRIMARY) HYPERTENSION (3) Type 2 diabetes mellitus Current Visit: Yes Status: Acute Assessment & Plan: -on ozempic -states she is prescribed metformin but does not take it -a1c -SSI -ADA diet (4) Cough Current Visit: Yes Status: Acute Assessment & Plan: -Patient febrile in ED, obtain cxr/resp panel- viral 01/24: -refuses COVID testing -CXR with no acute etiology Code(s): R05.9 - COUGH, UNSPECIFIED (5) Non compliance w medication regimen Current Visit: Yes Status: Acute Assessment & Plan: -secondary to weakness, will continue home meds VTE: lovenox PPI: Protonix Dispo: 1-2 days Code status: SCO Code(s): E87.1 - HYPO-OSMOLALITY AND HYPONATREMIA (2) HTN (hypertension) Current Visit: Yes Status: Acute Code(s): I10 - ESSENTIAL (PRIMARY) HYPERTENSION (3) Type 2 diabetes mellitus Current Visit: Yes Status: Acute (4) Cough Current Visit: Yes Status: Acute Code(s): R05.9 - COUGH, UNSPECIFIED (5) Non compliance w medication regimen Current Visit: Yes Status: Acute Code(s): Z91.148 - PATIENT'S OTHER NONCOMPL WITH MEDS REGIMEN FOR OTHER REASON (6) Depression Current Visit: Yes Status: Acute Code(s): F32.A - DEPRESSION, UNSPECIFIED
[2024-01-25 05:29] LABS: Hemoglobin 10.7 g/dL (11.2-15.7); Mean Cell Volume 88.8 fL (79.4-94.8); Mean Corpuscular Hemoglobin 31.7 pg (25.6-32.2); Mean Corpuscular Hgb Concent. 35.7 g/dL (32.2-35.5); Mean Platelet Volume 10.4 fL (9.4-12.3); Platelet Count 142 x10^3/uL (182-369); Red Blood Count 3.38 x10^6/uL (3.93-5.22); White Blood Count 5.7 x10^3/uL (3.98-10.04)
[2024-01-25 05:50] LABS: ALBUMIN 2.9 g/dL (3.5-5.0); ANION GAP 8.4 MEQ/L (5-15); BILIRUBIN,TOTAL 0.7 mg/dL (0.2-1.3); Creatinine 1 0.64 mg/dL (0.52-1.04); EST GLOMERULAR FILTRATION RATE 95.6 ML/MIN; Potassium 3.9 mmol/L (3.5-5.1); Total Protein 6.3 g/dL (6.3-8.2)
[2024-01-25 07:34] LABS: ATYPICAL LYMPHS 7 %; Lymphocytes 30 % (24-44); Monocyte 15 % (0.0-12.0); Neutrophils 48 % (1.56-6.13); Total Cells Counted 100
[2024-01-25 07:35] LABS: Platelet Estimate DECREASED (NORMAL)
--- NOTE | 2024-01-25 08:33 | XRAY ---
Indication: Cough. Short of breath. Comparison: None Portable apical lordotic chest demonstrates minimal left costophrenic angle fibrosis/scarring. Remaining lungs clear. Heart not enlarged with tortuous descending aorta. Bony thorax intact with osteopenia and mild degenerative changes. Impression: Nonacute chest with chronic features.
[2024-01-25] MEDS: ZOCOR 20MG PO SCH (10:57)
[2024-01-25] MEDS: ENOXAPARIN SODIUM SQ SCH (10:57)
[2024-01-25] MEDS: NORVASC 5 MG PO SCH (10:57)
[2024-01-25] MEDS: Prozac 20 MG PO SCH (10:57)
[2024-01-25] MEDS: PROTONIX 40 MG IV IV SCH (10:58)
[2024-01-25] MEDS ORDERED: SODIUM CHLORIDE PO SCH (15:00)
[2024-01-25] MEDS: SODIUM CHLORIDE PO SCH (15:01)
--- NOTE | 2024-01-26 05:07 | PCM.NOTE ---
Date and Time: 01/26/24 0504 Subjective Assessment: is a 68 year old female with a pmhx of DMII, HTN, and depression who presented to ED 01/24/24 with complaints of weakness and fatigue with an onset of about one week ago. 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 She reports that she has been on ozempic for about one year with a 69 pound weight loss. She generally tolerates the injection well with minimal side effects. She does struggle to consume adequate oral intake. Due to weakness she has not taken her prescribed home medications in about a week including her depression medication. Upon arrival to ED, patient mildly febrile. Lab findings remarkable for hyponatremia and elevated LFT's. Patient received fluid bolus in ED. 01/25/24: Met with patient bedside. Endorsing that she is feeling much better today although still weak. She did have a mild temperature last night of 100. CXR with no acute etiology. Sodium levels remain low today with not much increase. Plan for fluid restriction and sodium chloride tabs. Will recheck labs this afternoon. 10/25: Patient feeling better today. Sodium levels improving. Appetite and energy levels improved - able to ambulate with no difficulties. Plan for continued treatment with sodium chloride tabs/fluid restriction. Possible dc tomorrow. Denies fever,cough, sob, cp, abdominal pain, CHANEY, dizziness, N/V/D. - Review of Systems Constitutional: No Symptoms Eyes: No Symptoms Ears, Nose, & Throat: No Symptoms Respiratory: No Symptoms Cardiac: No Symptoms Abdominal/Gastrointestinal: No Symptoms Genitourinary Symptoms: No Symptoms Musculoskeletal: No Symptoms Skin: No Symptoms Neurological: No Symptoms Psychological: No Symptoms Endocrine: No Symptoms Hematologic/Lymphatic: No Symptoms Immunological/Allergic: No Symptoms Objective Exam General Appearance: no apparent distress Neurologic Exam: alert, oriented x 3, cooperative Skin Exam: normal color Eye Exam: PERRL Ears, Nose, Throat Exam: normal ENT inspection Neck Exam: normal inspection Respiratory Exam: normal breath sounds, lungs clear Cardiovascular Exam: regular rate/rhythm, normal heart sounds Gastrointestinal/Abdomen Exam: soft, normal bowel sounds Extremity Exam: normal inspection Back Exam: normal inspection Pelvic Exam: deferred Rectal Exam: deferred Objective Data Vital Signs: Vital Signs - 24 hr Temp Pulse Resp BP Pulse Ox 01/26/24 04:00 99.9 F 95 H 18 118/68 96 01/26/24 00:00 99.9 F 85 19 116/58 96 01/25/24 20:00 99.8 F 80 19 114/57 95 01/25/24 16:00 99.3 F 80 16 109/54 97 01/25/24 12:00 98.9 F 72 16 105/58 97 01/25/24 08:42 95 01/25/24 07:59 98.8 F 85 16 116/55 93 L Pain Assessment - Last Documented Pain Intensity 0 Intake and Output: Intake & Output 01/23/24 01/24/24 01/25/24 01/26/24 11:59 11:59 11:59 11:59 Intake Total 1520 480 Balance 1520 480 Weight 78.471 kg 80.5 kg Lab Results: Lab Results-Last 24 Hours 01/25/24 01/25/24 01/25/24 Range/Units 05:16 05:16 07:03 WBC 5.7 (3.98-10.04) x10^3/uL RBC 3.38 L (3.93-5.22) x10^6/uL Hgb 10.7 L (11.2-15.7) g/dL Hct 30.0 L (34.1-44.9) % MCV 88.8 (79.4-94.8) fL MCH 31.7 (25.6-32.2) pg MCHC 35.7 H (32.2-35.5) g/dL RDW 12.0 (11.7-14.4) % Plt Count 142 L (182-369) x10^3/uL MPV 10.4 (9.4-12.3) fL Segmented Neutrophils 48 H (1.56-6.13) % Lymphocytes (Manual) 30 (24-44) % Monocytes (Manual) 15 H (0.0-12.0) % Atypical Lymphocytes 7 % Platelet Estimate DECREASED (NORMAL) RBC Morphology NORMAL Sodium 126 L (135-145) mmol/L Potassium 3.9 (3.5-5.1) mmol/L Chloride 98 (98-107) mmol/L Carbon Dioxide 23 (22-30) mmol/L Anion Gap 8.4 (5-15) MEQ/L BUN 9 (7-17) mg/dL Creatinine 0.64 (0.52-1.04) mg/dL Estimated GFR 95.6 ML/MIN Glucose 121 H (74-106) mg/dL POC Glucometer 111 H (74 to 106) mg/dL Calcium 8.0 L (8.4-10.2) mg/dL Total Bilirubin 0.70 (0.2-1.3) mg/dL AST 61 H (14-36) U/L ALT 33 (0-35) U/L Alkaline Phosphatase 71 (38-126) U/L Serum Total Protein 6.3 (6.3-8.2) g/dL Albumin 2.9 L (3.5-5.0) g/dL Triglycerides 88 (30-150) mg/dL Cholesterol 104 (50-200) mg/dL LDL Cholesterol 60 (30-100) mg/dL HDL Cholesterol 24 L (40-60) mg/dL Heart Disease Risk Ratio 4.0 01/25/24 01/25/24 01/25/24 Range/Units 11:17 13:35 19:25 WBC (3.98-10.04) x10^3/uL RBC (3.93-5.22) x10^6/uL Hgb (11.2-15.7) g/dL Hct (34.1-44.9) % MCV (79.4-94.8) fL MCH (25.6-32.2) pg MCHC (32.2-35.5) g/dL RDW (11.7-14.4) % Plt Count (182-369) x10^3/uL MPV (9.4-12.3) fL Segmented Neutrophils (1.56-6.13) % Lymphocytes (Manual) (24-44) % Monocytes (Manual) (0.0-12.0) % Atypical Lymphocytes % Platelet Estimate (NORMAL) RBC Morphology Sodium 124 L 128 L (135-145) mmol/L Potassium (3.5-5.1) mmol/L Chloride (98-107) mmol/L Carbon Dioxide (22-30) mmol/L Anion Gap (5-15) MEQ/L BUN (7-17) mg/dL Creatinine (0.52-1.04) mg/dL Estimated GFR ML/MIN Glucose (74-106) mg/dL POC Glucometer 140 H (74 to 106) mg/dL Calcium (8.4-10.2) mg/dL Total Bilirubin (0.2-1.3) mg/dL AST (14-36) U/L ALT (0-35) U/L Alkaline Phosphatase (38-126) U/L Serum Total Protein (6.3-8.2) g/dL Albumin (3.5-5.0) g/dL Triglycerides (30-150) mg/dL Cholesterol (50-200) mg/dL LDL Cholesterol (30-100) mg/dL HDL Cholesterol (40-60) mg/dL Heart Disease Risk Ratio Radiology Exams: Radiology Procedures Category Date Time Status CHEST 1 VIEW (PORTABLE) Stat Exams 01/24/24 17:44 Completed Multi-Disciplinary Progress Notes: Multi-Disciplinary Progress Notes 01/25/24 20:19 OT Plan of Care Note by Rosa Khan OT Eval OT Inpatient Eval and POC Start: 01/25/24 11:47 Freq: ONCE Status: Active Protocol: Created 01/25/24 11:48 ED (Rec: 01/25/24 11:48 ED [id number]) Document 01/25/24 14:49 KA (Rec: 01/25/24 15:08 KA [id number]) OT Evaluation Ja VARELA IS AGREEABLE TO OT EVALUATION THIS DATE. Pertinent Past Medical History DM2, HTN, DEPRESSION, 69 POUND WEIGHTLOSS IN PAST YEAR (ON OZEMPIC BUT NO LONGER TAKING). 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 SHE BROUGHT HER QUAD CANE WITH HER , BUT DOES NOT TYPICALLY USE IT DURING AMBULATION. SHE USES A WALK IN SHOWER AND HAS ACCESS TO A SHOWER CHAIR. Equipment at Home Prior to Admission Cane,Shower Chair Home Setup [id number],Standard Height Toilet Date 01/25/24 Feeding WFL Grooming Impaired Comment MIN ASSIST (DUE TO FATIGUE) Bathing Impaired Comment UB: SBA LB: MIN ASSIST Dressing Impaired Comment UB: SBA LB: MIN ASSIST Toileting Impaired Comment MIN ASSIST IADLS (If indicated) Homemaking,etc Impaired Comment IMPAIRED DUE TO POOR ACTIVITY TOLERANCE. Bed Mobility Impaired Comment MIN ASSIST Toilet Transfers Impaired Comment MIN ASSIST (LB WEAKNESS WITH TRANSFER OFF COMMODE) Shower Transfers Impaired Comment CGA/MIN ASSIST (USED SHOWER SEAT WITH BATHING)- PER SOAKERS SUPERVISOR Functional Transfers Impaired Comment SBA/CGA WITH QUAD CANE. OT LOWERED QUAD CANE BUT PATIENT DECLINED TO STAND AGAIN TO ASSESS Range of Motion WFL Coordination WFL Functional Strength RIGHT SHOULDER: 4-/5 LEFT SHOULDER: 4-/5 Functional Endurance POOR (+) PATIENT REPORTS THAT HER ENERGY LEVELS ARE APPROXIMATELY 30% COMPARED TO HER BASELINE INDICATING A 70% DEFICIT. Cognition ALERT AND ORIENTED X 4 Pain NO REPORTED PAIN DURING EVALUATION (PATIENT STATES THAT SHE OCCASIONALLY EXPERIENCES LEFT KNEE PAIN). Objective Data/Standardized Assessment(s GARZON: 210 INDICATING HIGH ) LEVEL OF DEPENDENCE WITH ADLS. OT Plan Of Care Date of Evaluation 01/25/24 Treatment Diagnosis HYPONATREMIA, WEAKNESS Teaching Recipient Patient Patient is Aware of Diagnosis and Yes Prognosis Patient is receptive to Plan of Care and Yes contributory towards OT goals Functional Problem List NICHOLE PRESENTS WITH GENERALIZED WEAKNESS, DECREASED ACTIVITY TOLERANCE, AND INSTABILITY LIMITNIG INDEPENDENCE WITH I/ADLS AND SAFETY. Therapuetic Interventions SELF CARE, THERAPEUTIC ACTIVITY, THERAPEUTIC EXERCISE Functional Goals of Treatment 1) BY 12/01/23, NICHOLE WILL ENGAGE IN BASIC ADLS MOD INDEP IN ORDER TO FACILITATE SAFE D /C HOME. 2) BY 12/01/23, NICHOLE WILL DEMONSTRATE INDEPENDENCE WITH UE STRENGTHENING HEP PROGRAM. 3) BY 12/01/23, NICHOLE WILL DEMONSTRATE INDEPENDENCE WITH ALL ACTIVITY MODIFICATIONS AND DISCHARGE INSTRUCTIONS IN ORDER TO FACILITATE SAFE D/C. Frequency/Duration 5X/WEEK Rehabilitation Potential for Goals/ Good Barriers to Progress Discharge Recommendations/Plan OT RECOMMENDS FOR NICHOLE TO RETURN HOME AT D/C PENDING FURTHER PROGRESS WITH THERAPY AND LIKELY THAT HER ENDURANCE WILL RETURN SODIUM LEVEL STABILIZES. Initialized on 01/25/24 20:19 - END OF NOTE Assessment/Plan (1) Hyponatremia Current Visit: Yes Status: Acute Assessment & Plan: -NS at 100ml/hr -Most likely secondary to hypovolemia -TSH, lipid, urine sodium/osmo -BMP q4h 01/24: -Dc fluids -1.8L fluid restriction -sodium chloride tabs -TSH wNL -urine sodium low 01/25: -continue sodium chloride tabs - levels are improving -Fluid restriction Code(s): E87.1 - HYPO-OSMOLALITY AND HYPONATREMIA (2) HTN (hypertension) Current Visit: Yes Status: Acute Assessment & Plan: -stable - continue home meds Code(s): I10 - ESSENTIAL (PRIMARY) HYPERTENSION (3) Type 2 diabetes mellitus Current Visit: Yes Status: Acute Assessment & Plan: -on ozempic -states she is prescribed metformin but does not take it -a1c -SSI -ADA diet (4) Cough Current Visit: Yes Status: Acute Assessment & Plan: -Patient febrile in ED, obtain cxr/resp panel- viral 01/24: -refuses COVID testing -CXR with no acute etiology Code(s): R05.9 - COUGH, UNSPECIFIED (5) Non compliance w medication regimen Current Visit: Yes Status: Acute Assessment & Plan: -secondary to weakness, will continue home meds VTE: lovenox PPI: Protonix Dispo: 1-2 days Code status: SCO Code(s): E87.1 - HYPO-OSMOLALITY AND HYPONATREMIA (2) HTN (hypertension) Current Visit: Yes Status: Acute Code(s): I10 - ESSENTIAL (PRIMARY) HYPERTENSION (3) Type 2 diabetes mellitus Current Visit: Yes Status: Acute (4) Cough Current Visit: Yes Status: Acute Code(s): R05.9 - COUGH, UNSPECIFIED (5) Non compliance w medication regimen Current Visit: Yes Status: Acute Code(s): Z91.148 - PATIENT'S OTHER NONCOMPL WITH MEDS REGIMEN FOR OTHER REASON (6) Depression Current Visit: Yes Status: Acute Code(s): F32.A - DEPRESSION, UNSPECIFIED
[2024-01-26 05:33] LABS: Hematocrit 32.5 % (34.1-44.9); Hemoglobin 11.4 g/dL (11.2-15.7); Mean Cell Volume 88.8 fL (79.4-94.8); Mean Corpuscular Hemoglobin 31.1 pg (25.6-32.2); Mean Corpuscular Hgb Concent. 35.1 g/dL (32.2-35.5); Mean Platelet Volume 10.2 fL (9.4-12.3); Platelet Count 175 x10^3/uL (182-369); Red Blood Count 3.66 x10^6/uL (3.93-5.22); Red Cell Distribution Width 11.9 % (11.7-14.4)
[2024-01-26 06:01] LABS: ALBUMIN 3.2 g/dL (3.5-5.0); BILIRUBIN,TOTAL 0.8 mg/dL (0.2-1.3); Calcium 8.2 mg/dL (8.4-10.2); Creatinine 1 0.63 mg/dL (0.52-1.04); Total Protein 6.8 g/dL (6.3-8.2)
[2024-01-26 06:04] LABS: Potassium 3.7 mmol/L (3.5-5.1)
[2024-01-26 06:09] LABS: ANION GAP 11.7 MEQ/L (5-15)
[2024-01-26 08:17] LABS: ATYPICAL LYMPHS 2 %; BAND 4 % (0.0-2.0); Basophil 1 % (0.0-1.0); Eosinophil 1 % (0.00-3.0); Lymphocytes 35 % (24-44); Monocyte 9 % (0.0-12.0); Neutrophils 48 % (1.56-6.13); Total Cells Counted 100
[2024-01-26 08:18] LABS: Platelet Estimate NORMAL (NORMAL)
--- NOTE | 2024-01-27 05:21 | PCM.DS ---
Discharge Summary Date of Admission: 01/24/24 16:45 Date of Discharge: 01/27/24 Admitting Physician: JR TORRES MD Primary Care Provider: ERA RODRIGUEZ Allergies Allergies morphine Allergy (Verified 01/24/24 17:35) naproxen Allergy (Verified 01/24/24 17:35) Sulfa (Sulfonamide Antibiotics) Allergy (Verified 01/24/24 17:35) Tetanus Vaccines and Toxoid Allergy (Verified 01/24/24 17:35) Hospital Summary - Hospital Course Hospital Course: is a 68 year old female with a pmhx of DMII, HTN, and depression who presented to ED 01/24/24 with complaints of weakness and fatigue with an onset of about one week ago. 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 She reports that she has been on ozempic for about one year with a 69 pound weight loss. She generally tolerates the injection well with minimal side effects. She does struggle to consume adequate oral intake. Due to weakness she has not taken her prescribed home medications in about a week including her depression medication. Upon arrival to ED, patient mildly febrile. Lab findings remarkable for hyponatremia and elevated LFT's. Patient received fluid bolus in ED. 01/25/24: Met with patient bedside. Endorsing that she is feeling much better today although still weak. She did have a mild temperature last night of 100. CXR with no acute etiology. Sodium levels remain low today with not much increase. Plan for fluid restriction and sodium chloride tabs. Will recheck labs this afternoon. 10/25: Patient feeling better today. Sodium levels improving. Appetite and energy levels improved - able to ambulate with no difficulties. Plan for continued treatment with sodium chloride tabs/fluid restriction. Possible dc tomorrow. Denies fever,cough, sob, cp, abdominal pain, CHANEY, dizziness, N/V/D. Discharge Note New Diagnosis: New Medications: Follow Up: Results pending: Outpatient testing to order: Latest Assessment & Plan (1) Hyponatremia Current Visit: Yes Status: Acute Assessment & Plan: -NS at 100ml/hr -Most likely secondary to hypovolemia -TSH, lipid, urine sodium/osmo -BMP q4h 01/24: -Dc fluids -1.8L fluid restriction -sodium chloride tabs -TSH wNL -urine sodium low 01/25: -continue sodium chloride tabs - levels are improving -Fluid restriction Code(s): E87.1 - HYPO-OSMOLALITY AND HYPONATREMIA (2) HTN (hypertension) Current Visit: Yes Status: Acute Assessment & Plan: -stable - continue home meds Code(s): I10 - ESSENTIAL (PRIMARY) HYPERTENSION (3) Type 2 diabetes mellitus Current Visit: Yes Status: Acute Assessment & Plan: -on ozempic -states she is prescribed metformin but does not take it -a1c -SSI -ADA diet (4) Cough Current Visit: Yes Status: Acute Assessment & Plan: -Patient febrile in ED, obtain cxr/resp panel- viral 01/24: -refuses COVID testing -CXR with no acute etiology Code(s): R05.9 - COUGH, UNSPECIFIED (5) Non compliance w medication regimen Current Visit: Yes Status: Acute Assessment & Plan: -secondary to weakness, will continue home meds I spent 35 minutes [id number] with the patient on the day of discharge performing discharge exam, discussing hospital stay and discharge instructions with patient and caregivers, preparation of discharge records, prescriptions & referral forms and addressing any questions/concerns the patient had as documented above. - Vitals & Intake/Output Vital Signs: Vital Signs Temperature 99.8 F 01/27/24 04:00 Pulse Rate 83 01/27/24 04:00 Respiratory Rate 19 01/27/24 04:00 Blood Pressure 139/60 01/27/24 04:00 O2 Sat by Pulse Oximetry 95 01/27/24 04:00 Intake & Output: Intake & Output 01/24/24 01/25/24 01/26/24 01/27/24 11:59 11:59 11:59 11:59 Intake Total 1520 600 540 Balance 1520 600 540 Weight 78.471 kg 80.5 kg - Lab Result Diagrams: 01/26/24 05:20 01/26/24 18:30 Lab Results-Last 24 Hrs: Lab Results-Last 24 Hours 01/26/24 01/26/24 01/26/24 Range/Units 05:20 05:20 18:30 WBC 6.0 (3.98-10.04) x10^3/uL RBC 3.66 L (3.93-5.22) x10^6/uL Hgb 11.4 (11.2-15.7) g/dL Hct 32.5 L (34.1-44.9) % MCV 88.8 (79.4-94.8) fL MCH 31.1 (25.6-32.2) pg MCHC 35.1 (32.2-35.5) g/dL RDW 11.9 (11.7-14.4) % Plt Count 175 L (182-369) x10^3/uL MPV 10.2 (9.4-12.3) fL Segmented Neutrophils 48 H (1.56-6.13) % Band Neutrophils 4 H (0.0-2.0) % Lymphocytes (Manual) 35 (24-44) % Monocytes (Manual) 9 (0.0-12.0) % Eosinophils (Manual) 1 (0.00-3.0) % Basophils (Manual) 1 (0.0-1.0) % Atypical Lymphocytes 2 % Platelet Estimate NORMAL (NORMAL) RBC Morphology NORMAL Sodium 127 L 128 L (135-145) mmol/L Potassium 3.7 (3.5-5.1) mmol/L Chloride 99 (98-107) mmol/L Carbon Dioxide 20 L (22-30) mmol/L Anion Gap 11.7 (5-15) MEQ/L BUN 7 (7-17) mg/dL Creatinine 0.63 (0.52-1.04) mg/dL Estimated GFR 96.0 ML/MIN Glucose 119 H (74-106) mg/dL Calcium 8.2 L (8.4-10.2) mg/dL Total Bilirubin 0.80 (0.2-1.3) mg/dL AST 61 H (14-36) U/L ALT 36 H (0-35) U/L Alkaline Phosphatase 81 (38-126) U/L Serum Total Protein 6.8 (6.3-8.2) g/dL Albumin 3.2 L (3.5-5.0) g/dL Micro Results-Entire Visit: Accuchecks Date 01/26/24 Date 01/26/2401/26/2401/26/24 Time 21:30 - Procedures and Test Procedures and Tests throughout Hospitalization: Therapy Orders & Screens 01/25/24 11:47 PT Eval & Treat ( Order) ONCE Reason for Eval:: weakness Diagnosis: HYPONATREMIA, WEAKNESS OT Eval and Treat (MD Order) ONCE Comment: Physician Instructions: Reason For Exam: Diagnosis: HYPONATREMIA, WEAKNESS Final Diagnosis/Problem List - Final Discharge Diagnosis/Problem (1) Hyponatremia Current Visit: Yes Status: Acute Code(s): E87.1 - HYPO-OSMOLALITY AND HYPONATREMIA (2) HTN (hypertension) Current Visit: Yes Status: Acute Code(s): I10 - ESSENTIAL (PRIMARY) HYPERTENSION (3) Type 2 diabetes mellitus Current Visit: Yes Status: Acute (4) Cough Current Visit: Yes Status: Acute Code(s): R05.9 - COUGH, UNSPECIFIED (5) Non compliance w medication regimen Current Visit: Yes Status: Acute Code(s): Z91.148 - PATIENT'S OTHER NONCOMPL WITH MEDS REGIMEN FOR OTHER REASON (6) Depression Current Visit: Yes Status: Acute Code(s): F32.A - DEPRESSION, UNSPECIFIED - Discharge Disposition: Home, Self-Care Condition: Stable Prescriptions: No Action Amlodipine Besylate 5 mg [Norvasc 5 mg] 5 mg PO DAILY Semaglutide [Ozempic] 1 mg SQ WEEKLY Metformin HCl 500 mg [Glucophage 500 MG] 500 mg PO BIDWM Simvastatin 20Mg [Zocor 20Mg] 20 mg PO DAILY Fluoxetine HCl [Prozac] 40 mg PO DAILY Follow up with: ERA RODRIGUEZ [Primary Care Provider] -
[2024-01-27 05:30] LABS: Hematocrit 29.8 % (34.1-44.9); Hemoglobin 10.5 g/dL (11.2-15.7); Mean Cell Volume 87.6 fL (79.4-94.8); Mean Corpuscular Hemoglobin 30.9 pg (25.6-32.2); Mean Corpuscular Hgb Concent. 35.2 g/dL (32.2-35.5); Mean Platelet Volume 10.4 fL (9.4-12.3); Platelet Count 191 x10^3/uL (182-369); Red Cell Distribution Width 11.9 % (11.7-14.4)
[2024-01-27 05:57] LABS: ALBUMIN 2.8 g/dL (3.5-5.0); ANION GAP 8.9 MEQ/L (5-15); BILIRUBIN,TOTAL 0.8 mg/dL (0.2-1.3); Calcium 8.1 mg/dL (8.4-10.2); Creatinine 1 0.63 mg/dL (0.52-1.04); Potassium 3.7 mmol/L (3.5-5.1); Total Protein 6.4 g/dL (6.3-8.2)
[2024-01-27 07:04] LABS: Osmolality-Se/Pl 264 mOsmol/kg (280-301)
[2024-01-27 07:28] LABS: ATYPICAL LYMPHS 6 %; Lymphocytes 35 % (24-44); Monocyte 5 % (0.0-12.0); Neutrophils 54 % (1.56-6.13); Platelet Estimate NORMAL (NORMAL); Total Cells Counted 100
--- NOTE | 2024-01-27 10:40 | PCM.NOTE ---
Date and Time: 01/27/24 1035 Subjective Assessment: is a 68 year old female with a pmhx of DMII, HTN, and depression who presented to ED 01/24/24 with complaints of weakness and fatigue with an onset of about one week ago. 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 She reports that she has been on ozempic for about one year with a 69 pound weight loss. She generally tolerates the injection well with minimal side effects. She does struggle to consume adequate oral intake. Due to weakness she has not taken her prescribed home medications in about a week including her depression medication. Upon arrival to ED, patient mildly febrile. Lab findings remarkable for hyponatremia and elevated LFT's. Patient received fluid bolus in ED. 01/25/24: Met with patient bedside. Endorsing that she is feeling much better today although still weak. She did have a mild temperature last night of 100. CXR with no acute etiology. Sodium levels remain low today with not much increase. Plan for fluid restriction and sodium chloride tabs. Will recheck labs this afternoon. 01/25: Patient feeling better today. Sodium levels improving. Appetite and energy levels improved - able to ambulate with no difficulties. Plan for continued treatment with sodium chloride tabs/fluid restriction. Possible dc tomorrow. Denies fever,cough, sob, cp, abdominal pain, CHANEY, dizziness, N/V/D 01/26: Endorses much improved appetite and energy levels. Sodium levels remain the same at 127. Plan to give one dose of Samsca today and start Ure-na bid tomorrow. Patient will need follow up with nephrology as OP. Continue fluid restriction. - Review of Systems Constitutional: No Symptoms Eyes: No Symptoms Ears, Nose, & Throat: No Symptoms Respiratory: No Symptoms Cardiac: No Symptoms Abdominal/Gastrointestinal: No Symptoms Genitourinary Symptoms: No Symptoms Musculoskeletal: No Symptoms Skin: No Symptoms Neurological: No Symptoms Psychological: No Symptoms Endocrine: No Symptoms Hematologic/Lymphatic: No Symptoms Immunological/Allergic: No Symptoms Objective Exam General Appearance: no apparent distress Neurologic Exam: alert, oriented x 3, cooperative, normal mood/affect Skin Exam: normal color Eye Exam: PERRL Ears, Nose, Throat Exam: normal ENT inspection Neck Exam: normal inspection Respiratory Exam: normal breath sounds, lungs clear Cardiovascular Exam: regular rate/rhythm, normal heart sounds Gastrointestinal/Abdomen Exam: soft, normal bowel sounds Extremity Exam: normal inspection Back Exam: normal inspection Pelvic Exam: deferred Rectal Exam: deferred Objective Data Vital Signs: Vital Signs - 24 hr Temp Pulse Resp BP Pulse Ox 01/27/24 07:57 98.7 F 92 H 22 113/60 95 01/27/24 04:00 99.8 F 83 19 139/60 95 01/27/24 00:00 99.1 F 80 17 104/55 95 01/26/24 20:00 98.4 F 92 H 17 108/59 98 01/26/24 16:00 96.9 F 82 16 108/59 96 01/26/24 11:54 98.3 F 84 16 93/50 96 Pain Assessment - Last Documented Pain Intensity 0 Intake and Output: Intake & Output 01/24/24 01/25/24 01/26/24 01/27/24 11:59 11:59 11:59 11:59 Intake Total 1520 600 990 Balance 1520 600 990 Weight 78.471 kg 80.5 kg Lab Results: Lab Results-Last 24 Hours 01/24/24 01/26/24 01/27/24 Range/Units 09:50 18:30 05:20 WBC 6.0 (3.98-10.04) x10^3/uL RBC 3.40 L (3.93-5.22) x10^6/uL Hgb 10.5 L (11.2-15.7) g/dL Hct 29.8 L (34.1-44.9) % MCV 87.6 (79.4-94.8) fL MCH 30.9 (25.6-32.2) pg MCHC 35.2 (32.2-35.5) g/dL RDW 11.9 (11.7-14.4) % Plt Count 191 (182-369) x10^3/uL MPV 10.4 (9.4-12.3) fL Segmented Neutrophils 54 H (1.56-6.13) % Lymphocytes (Manual) 35 (24-44) % Monocytes (Manual) 5 (0.0-12.0) % Atypical Lymphocytes 6 % Platelet Estimate NORMAL (NORMAL) RBC Morphology NORMAL Sodium 128 L (135-145) mmol/L Potassium (3.5-5.1) mmol/L Chloride (98-107) mmol/L Carbon Dioxide (22-30) mmol/L Anion Gap (5-15) MEQ/L BUN (7-17) mg/dL Creatinine (0.52-1.04) mg/dL Estimated GFR ML/MIN Glucose (74-106) mg/dL Serum Osmolality 264 L (280-301) mOsmol/kg Calcium (8.4-10.2) mg/dL Total Bilirubin (0.2-1.3) mg/dL AST (14-36) U/L ALT (0-35) U/L Alkaline Phosphatase (38-126) U/L Serum Total Protein (6.3-8.2) g/dL Albumin (3.5-5.0) g/dL Urine Osmolality Pending 01/27/24 Range/Units 05:20 WBC (3.98-10.04) x10^3/uL RBC (3.93-5.22) x10^6/uL Hgb (11.2-15.7) g/dL Hct (34.1-44.9) % MCV (79.4-94.8) fL MCH (25.6-32.2) pg MCHC (32.2-35.5) g/dL RDW (11.7-14.4) % Plt Count (182-369) x10^3/uL MPV (9.4-12.3) fL Segmented Neutrophils (1.56-6.13) % Lymphocytes (Manual) (24-44) % Monocytes (Manual) (0.0-12.0) % Atypical Lymphocytes % Platelet Estimate (NORMAL) RBC Morphology Sodium 127 L (135-145) mmol/L Potassium 3.7 (3.5-5.1) mmol/L Chloride 99 (98-107) mmol/L Carbon Dioxide 22 (22-30) mmol/L Anion Gap 8.9 (5-15) MEQ/L BUN 9 (7-17) mg/dL Creatinine 0.63 (0.52-1.04) mg/dL Estimated GFR 96.0 ML/MIN Glucose 119 H (74-106) mg/dL Serum Osmolality (280-301) mOsmol/kg Calcium 8.1 L (8.4-10.2) mg/dL Total Bilirubin 0.80 (0.2-1.3) mg/dL AST 61 H (14-36) U/L ALT 35 (0-35) U/L Alkaline Phosphatase 75 (38-126) U/L Serum Total Protein 6.4 (6.3-8.2) g/dL Albumin 2.8 L (3.5-5.0) g/dL Urine Osmolality Multi-Disciplinary Progress Notes: Multi-Disciplinary Progress Notes 01/26/24 12:39 Occupational Therapy Note by Erin (L#[id number])Rosa OT TREATMENT (11:20-11:50) PATIENT COMPLETES FUNCTIONAL TRANSFERS WITH USE OF QUAD CANE AND CGA/SBA INTO BATHROOM. SHE COMPLETE TOILETING TASKS (MANAGING PANTS, HYGIENE, AND TRANSFER) WITH CGA. AFTER TRANSFER OFF COMMODE, SHE ATTEMPTS TO PROGRAMMING INTERNSHIP COTTON BANDAGE ON GROUND. OT INSTRUCTS PATIENT TO NOT GET IT; HOWEVER, SHE DISREGARDS THE STATEMENT. OT PROVIDES CGA/MIN ASSIST PATIENT CORRECTS HER LOB MOD INDEP AND REPORTS "I SHOULDN'T HAVE DONE THAT". SHE REPORTS LIGHTHEADEDNESS, BUT RECOVERS WITH STANDING STILL FOR APPROXIMATLEY 1 MINUTE. SHE THEN COMPLETES HAND HYGIENE WITH SBA AND RETURNS TO CHAIR. OT PROVIDED INSTRUCTION ON RED THERABAND EXERCISES WITH WRITTEN HANDOUT. PATIENT DEMONSTRATES COMPETENCE WITH HEP, BUT ONLY ABLE TO COMPLETE 5 REPS OF EACH EXERCISE DUE TO FATIGUE. OT RECOMMENDS HHT AT D/C DUE TO WEAKNESS AND SAFETY CONCERNS/FALL RISK. Initialized on 01/26/24 12:39 - END OF NOTE 01/26/24 11:00 (created 01/26/24 12:35) Case Management Note by Laura Kam S/W PATIENT- SHE CONTINUES TO DENY ANY NEW NEEDS AT TIME OF DC. SHE PLANS TO RETURN HOME TO HER PLF AT TIME OF DC Initialized on 01/26/24 12:35 - END OF NOTE Assessment/Plan (1) Hyponatremia Current Visit: Yes Status: Acute Assessment & Plan: -NS at 100ml/hr -Most likely secondary to hypovolemia -TSH, lipid, urine sodium/osmo -BMP q4h 01/24: -Dc fluids -1.8L fluid restriction -sodium chloride tabs -TSH wNL -urine sodium low 01/25: -continue sodium chloride tabs - levels are improving -Fluid restriction 01/26: -Dc salt tabs -Samsca 15mg x 1 dose -Ure-na 15gm BID -Nephrology follow up as OP Code(s): E87.1 - HYPO-OSMOLALITY AND HYPONATREMIA (2) HTN (hypertension) Current Visit: Yes Status: Acute Assessment & Plan: -stable - continue home meds Code(s): I10 - ESSENTIAL (PRIMARY) HYPERTENSION (3) Type 2 diabetes mellitus Current Visit: Yes Status: Acute Assessment & Plan: -on ozempic -states she is prescribed metformin but does not take it -a1c -SSI -ADA diet (4) Cough Current Visit: Yes Status: Acute Assessment & Plan: -Patient febrile in ED, obtain cxr/resp panel- viral 01/24: -refuses COVID testing -CXR with no acute etiology 01/26: -Resolved Code(s): R05.9 - COUGH, UNSPECIFIED (5) Non compliance w medication regimen Current Visit: Yes Status: Acute Assessment & Plan: -secondary to weakness, will continue home meds VTE: lovenox PPI: Protonix Dispo: 1-2 days Code status: SCO Code(s): E87.1 - HYPO-OSMOLALITY AND HYPONATREMIA Code(s): E87.1 - HYPO-OSMOLALITY AND HYPONATREMIA (2) HTN (hypertension) Current Visit: Yes Status: Acute Code(s): I10 - ESSENTIAL (PRIMARY) HYPERTENSION (3) Type 2 diabetes mellitus Current Visit: Yes Status: Acute (4) Cough Current Visit: Yes Status: Acute Code(s): R05.9 - COUGH, UNSPECIFIED (5) Non compliance w medication regimen Current Visit: Yes Status: Acute Code(s): Z91.148 - PATIENT'S OTHER NONCOMPL WITH MEDS REGIMEN FOR OTHER REASON (6) Depression Current Visit: Yes Status: Acute Code(s): F32.A - DEPRESSION, UNSPECIFIED
[2024-01-27] MEDS: Protonix 40MG Tablet PO SCH (11:05)
[2024-01-27] MEDS: TOLVAPTAN PO ONE (11:05)
[2024-01-27] MEDS: SODIUM CHLORIDE PO SCH (15:44)
[2024-01-27 17:32] LABS: Osmolality, Urine 162 mOsmol/kg (.)
[2024-01-28 04:35] VITALS: RESP 18; O2SAT 95
--- NOTE | 2024-01-28 05:11 | PCM.NOTE ---
Date and Time: 01/28/24 0510 Subjective Assessment: is a 68 year old female with a pmhx of DMII, HTN, and depression who presented to ED 01/24/24 with complaints of weakness and fatigue with an onset of about one week ago. 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 She reports that she has been on ozempic for about one year with a 69 pound weight loss. She generally tolerates the injection well with minimal side effects. She does struggle to consume adequate oral intake. Due to weakness she has not taken her prescribed home medications in about a week including her depression medication. Upon arrival to ED, patient mildly febrile. Lab findings remarkable for hyponatremia and elevated LFT's. Patient received fluid bolus in ED. 01/25/24: Met with patient bedside. Endorsing that she is feeling much better today although still weak. She did have a mild temperature last night of 100. CXR with no acute etiology. Sodium levels remain low today with not much increase. Plan for fluid restriction and sodium chloride tabs. Will recheck labs this afternoon. 01/25: Patient feeling better today. Sodium levels improving. Appetite and energy levels improved - able to ambulate with no difficulties. Plan for continued treatment with sodium chloride tabs/fluid restriction. Possible dc tomorrow. Denies fever,cough, sob, cp, abdominal pain, CHANEY, dizziness, N/V/D 01/26: Endorses much improved appetite and energy levels. Sodium levels remain the same at 127. Plan to give one dose of Samsca today and start Ure-na bid tomorrow. Patient will need follow up with nephrology as OP. Continue fluid restriction. Objective Data Vital Signs: Vital Signs - 24 hr Temp Pulse Resp BP Pulse Ox 01/28/24 04:00 97.6 F 81 18 114/55 95 01/27/24 19:19 97.3 F 78 16 99/59 93 L 01/27/24 16:00 98.0 F 79 16 118/58 93 L 01/27/24 12:00 98.0 F 88 16 99/55 94 L 01/27/24 07:57 98.7 F 92 H 22 113/60 95 Pain Assessment - Last Documented Pain Intensity 0 Intake and Output: Intake & Output 09/04/01/26/24 01/27/24 01/28/24 11:59 11:59 11:59 11:59 Intake Total 1520 600 990 620 Balance 1520 600 990 620 Weight 80.5 kg Lab Results: Lab Results-Last 24 Hours 01/24/24 01/27/24 01/27/24 Range/Units 09:50 05:20 05:20 WBC 6.0 (3.98-10.04) x10^3/uL RBC 3.40 L (3.93-5.22) x10^6/uL Hgb 10.5 L (11.2-15.7) g/dL Hct 29.8 L (34.1-44.9) % MCV 87.6 (79.4-94.8) fL MCH 30.9 (25.6-32.2) pg MCHC 35.2 (32.2-35.5) g/dL RDW 11.9 (11.7-14.4) % Plt Count 191 (182-369) x10^3/uL MPV 10.4 (9.4-12.3) fL Segmented Neutrophils 54 H (1.56-6.13) % Lymphocytes (Manual) 35 (24-44) % Monocytes (Manual) 5 (0.0-12.0) % Atypical Lymphocytes 6 % Platelet Estimate NORMAL (NORMAL) RBC Morphology NORMAL Sodium 127 L (135-145) mmol/L Potassium 3.7 (3.5-5.1) mmol/L Chloride 99 (98-107) mmol/L Carbon Dioxide 22 (22-30) mmol/L Anion Gap 8.9 (5-15) MEQ/L BUN 9 (7-17) mg/dL Creatinine 0.63 (0.52-1.04) mg/dL Estimated GFR 96.0 ML/MIN Glucose 119 H (74-106) mg/dL Serum Osmolality 264 L (280-301) mOsmol/kg Calcium 8.1 L (8.4-10.2) mg/dL Total Bilirubin 0.80 (0.2-1.3) mg/dL AST 61 H (14-36) U/L ALT 35 (0-35) U/L Alkaline Phosphatase 75 (38-126) U/L Serum Total Protein 6.4 (6.3-8.2) g/dL Albumin 2.8 L (3.5-5.0) g/dL Urine Osmolality 162 (.) mOsmol/kg Multi-Disciplinary Progress Notes: Multi-Disciplinary Progress Notes 01/27/24 17:44 Occupational Therapy Note by Erin (L#[id number])Rosa DISCHARGE OT SERVICES AT THIS TIME; PER PHYSICAL THERAPY HER MOBILITY AND TRANSFERS ARE WFL. THIS OT HAS PROVIDED EDUCATION ON A/E AND DME FOR HOME AND INSTRUCTED PATIENT IN BUE STRENGTHENING HEP. PATIENT DECLINES A/E OR EDUCATION REGARDING HOME MANAGEMENT AND HHC. NO FURTHER SKILLED OT INDICATED AT THIS TIME. Initialized on 01/27/24 17:44 - END OF NOTE 01/27/24 10:30 (created 01/27/24 13:05) Case Management Note by Laura Kam S/W PATIENT WITH DAUGHTER PRESENT- PATIENT ENCOURAGED TO ACCEPT HHC. SHE AT THIS TIME DECLINES. SHE EXPLAINED THAT SHE IS LEARY OF HHC D/T SOME FAMILY HAVING A BAD EXPERIENCE. SHE WAS REASSURED THAT HHC WOULD BE HELPFUL TO HER, NOT A HINDRANCE. SHE WOULD STILL LIKE TO WAIT TO HAVE HHC SET UP AT THIS TIME. SHE WILL BE GIVEN CASE MANAGEMENT PHONE NUMBER IF SHE CHANGES HER MIND AND WAS ALSO NOTIFIED SHE CAN CONTACT HER PCP FOR THIS WELL. SHE VERIFIED UNDERSTANDING. SHE WILL ALSO BE GIVEN ACO PHONE NUMBER IF SHE BECOMES INTERESTED IN HOME DELIVER MEALS. SHE DENIES ANY CURRENT NEEDS AND PLANS TO DC HOME TO HER PLF AT TIME OF DC ACO AND CM NUMBER PUT IN DC INSTRUCTIONS Initialized on 01/27/24 13:05 - END OF NOTE Assessment/Plan (1) Hyponatremia Current Visit: Yes Status: Acute Assessment & Plan: -NS at 100ml/hr -Most likely secondary to hypovolemia -TSH, lipid, urine sodium/osmo -BMP q4h 01/24: -Dc fluids -1.8L fluid restriction -sodium chloride tabs -TSH wNL -urine sodium low 01/25: -continue sodium chloride tabs - levels are improving -Fluid restriction 01/26: -Dc salt tabs -Samsca 15mg x 1 dose -Ure-na 15gm BID -Nephrology follow up as OP Code(s): E87.1 - HYPO-OSMOLALITY AND HYPONATREMIA (2) HTN (hypertension) Current Visit: Yes Status: Acute Assessment & Plan: -stable - continue home meds Code(s): I10 - ESSENTIAL (PRIMARY) HYPERTENSION (3) Type 2 diabetes mellitus Current Visit: Yes Status: Acute Assessment & Plan: -on ozempic -states she is prescribed metformin but does not take it -a1c -SSI -ADA diet (4) Cough Current Visit: Yes Status: Acute Assessment & Plan: -Patient febrile in ED, obtain cxr/resp panel- viral 01/24: -refuses COVID testing -CXR with no acute etiology 01/26: -Resolved Code(s): R05.9 - COUGH, UNSPECIFIED (5) Non compliance w medication regimen Current Visit: Yes Status: Acute Assessment & Plan: -secondary to weakness, will continue home meds VTE: lovenox PPI: Protonix Dispo: 1-2 days Code status: SCO Code(s): E87.1 - HYPO-OSMOLALITY AND HYPONATREMIA Code(s): E87.1 - HYPO-OSMOLALITY AND HYPONATREMIA (2) HTN (hypertension) Current Visit: Yes Status: Acute Code(s): I10 - ESSENTIAL (PRIMARY) HYPERTENSION (3) Type 2 diabetes mellitus Current Visit: Yes Status: Acute (4) Cough Current Visit: Yes Status: Acute Code(s): R05.9 - COUGH, UNSPECIFIED (5) Non compliance w medication regimen Current Visit: Yes Status: Acute Code(s): Z91.148 - PATIENT'S OTHER NONCOMPL WITH MEDS REGIMEN FOR OTHER REASON (6) Depression Current Visit: Yes Status: Acute Code(s): F32.A - DEPRESSION, UNSPECIFIED
[2024-01-28 06:04] LABS: Hemoglobin 11.7 g/dL (11.2-15.7); Mean Cell Volume 88.9 fL (79.4-94.8); Mean Corpuscular Hemoglobin 31.5 pg (25.6-32.2); Mean Corpuscular Hgb Concent. 35.5 g/dL (32.2-35.5); Mean Platelet Volume 9.4 fL (9.4-12.3); Platelet Count 241 x10^3/uL (182-369); Red Blood Count 3.71 x10^6/uL (3.93-5.22); White Blood Count 7.1 x10^3/uL (3.98-10.04)
[2024-01-28 06:12] LABS: ALBUMIN 3.3 g/dL (3.5-5.0); ANION GAP 11.4 MEQ/L (5-15); BILIRUBIN,TOTAL 0.7 mg/dL (0.2-1.3); Calcium 8.6 mg/dL (8.4-10.2); Creatinine 1 0.67 mg/dL (0.52-1.04); EST GLOMERULAR FILTRATION RATE 94.6 ML/MIN; Potassium 3.6 mmol/L (3.5-5.1); Total Protein 7.2 g/dL (6.3-8.2)
[2024-01-28 06:38] LABS: ATYPICAL LYMPHS 6 %; BAND 10 % (0.0-2.0); Lymphocytes 31 % (24-44); Monocyte 12 % (0.0-12.0); Neutrophils 41 % (1.56-6.13); Poikilocytosis 1+; Total Cells Counted 100
[2024-01-28 06:39] LABS: Platelet Estimate NORMAL (NORMAL)
[2024-01-28 06:53] VITALS: BP 131/64; PULSE 80; TEMP 98
--- NOTE | 2024-01-28 09:33 | PCM.DS ---
Discharge Summary Date of Admission: 01/24/24 16:45 Date of Discharge: 01/28/24 Admitting Physician: JR TORRES MD Primary Care Provider: ERA RODRIGUEZ Allergies Allergies morphine Allergy (Verified 01/24/24 17:35) naproxen Allergy (Verified 01/24/24 17:35) Sulfa (Sulfonamide Antibiotics) Allergy (Verified 01/24/24 17:35) Tetanus Vaccines and Toxoid Allergy (Verified 01/24/24 17:35) Hospital Summary - Hospital Course Hospital Course: is a 68 year old female with a pmhx of DMII, HTN, and depression who presented to ED 01/24/24 with complaints of weakness and fatigue with an onset of about one week ago. Patient states she has also been having subjective fevers/chills, and nnps cough. She reports that she has been on ozempic for about one year with a 69 pound weight loss. She generally tolerates the injection well with minimal side effects. She does struggle to consume adequate oral intake. Due to weakness she has not taken her prescribed home medications in about a week including her depression medication. Upon arrival to ED, patient mildly febrile. Lab findings remarkable for hyponatremia and elevated LFT's. Patient received fluid bolus in ED. 01/25/24: Met with patient bedside. Endorsing that she is feeling much better today although still weak. She did have a mild temperature last night of 100. CXR with no acute etiology. Sodium levels remain low today with not much increase. Plan for fluid restriction and sodium chloride tabs. Will recheck labs this afternoon. 01/25: Patient feeling better today. Sodium levels improving. Appetite and energy levels improved - able to ambulate with no difficulties. Plan for continued treatment with sodium chloride tabs/fluid restriction. Possible dc tomorrow. Denies fever,cough, sob, cp, abdominal pain, CHANEY, dizziness, N/V/D 01/26: Endorses much improved appetite and energy levels. Sodium levels remain the same at 127. Plan to give one dose of Samsca today and start Ure-na bid tomorrow. Patient will need follow up with nephrology as OP. Continue fluid restriction. 01/27: Appetite and energy levels at baseline. Sodium level now at 134. Discussed case with nephrology- plan to continue Ure-na and have her follow up with nephrology on Tuesday. Patient agreeable to plan. Stable for discharge. Discharge Note New Diagnosis: Hyponatremia New Medications: Ure-na Follow Up: PCP/nephrology Latest Assessment & Plan (1) Hyponatremia Current Visit: Yes Status: Acute Assessment & Plan: -NS at 100ml/hr -Most likely secondary to hypovolemia -TSH, lipid, urine sodium/osmo -BMP q4h 01/24: -Dc fluids -1.8L fluid restriction -sodium chloride tabs -TSH wNL -urine sodium low 01/25: -continue sodium chloride tabs - levels are improving -Fluid restriction 01/26: -Dc salt tabs -Samsca 15mg x 1 dose -Ure-na 15gm BID starting 01/28/24 -Nephrology follow up as OP Code(s): E87.1 - HYPO-OSMOLALITY AND HYPONATREMIA (2) HTN (hypertension) Current Visit: Yes Status: Acute Assessment & Plan: -stable - continue home meds Code(s): I10 - ESSENTIAL (PRIMARY) HYPERTENSION (3) Type 2 diabetes mellitus Current Visit: Yes Status: Acute Assessment & Plan: -on ozempic -states she is prescribed metformin but does not take it -a1c -SSI -ADA diet (4) Cough Current Visit: Yes Status: Acute Assessment & Plan: -Patient febrile in ED, obtain cxr/resp panel- viral 01/24: -refuses COVID testing -CXR with no acute etiology 01/26: -Resolved Code(s): R05.9 - COUGH, UNSPECIFIED (5) Non compliance w medication regimen Current Visit: Yes Status: Acute Assessment & Plan: -secondary to weakness, will continue home meds I spent 35 minutes [id number] with the patient on the day of discharge performing discharge exam, discussing hospital stay and discharge instructions with patient and caregivers, preparation of discharge records, prescriptions & referral forms and addressing any questions/concerns the patient had as documented above. - Vitals & Intake/Output Vital Signs: Vital Signs Temperature 98.0 F 01/28/24 06:52 Pulse Rate 80 01/28/24 06:52 Respiratory Rate 18 01/28/24 06:52 Blood Pressure 131/64 01/28/24 06:52 O2 Sat by Pulse Oximetry 95 01/28/24 06:52 Intake & Output: Intake & Output 01/25/24 01/26/24 01/27/24 01/28/24 11:59 11:59 11:59 11:59 Intake Total 1520 600 990 970 Balance 1520 600 990 970 Weight 80.5 kg - Lab Result Diagrams: 01/28/24 05:52 01/28/24 05:52 Lab Results-Last 24 Hrs: Lab Results-Last 24 Hours 01/24/24 01/28/24 01/28/24 Range/Units 09:50 05:52 05:52 WBC 7.1 (3.98-10.04) x10^3/uL RBC 3.71 L (3.93-5.22) x10^6/uL Hgb 11.7 (11.2-15.7) g/dL Hct 33.0 L (34.1-44.9) % MCV 88.9 (79.4-94.8) fL MCH 31.5 (25.6-32.2) pg MCHC 35.5 (32.2-35.5) g/dL RDW 12.0 (11.7-14.4) % Plt Count 241 (182-369) x10^3/uL MPV 9.4 (9.4-12.3) fL Segmented Neutrophils 41 H (1.56-6.13) % Band Neutrophils 10 H (0.0-2.0) % Lymphocytes (Manual) 31 (24-44) % Monocytes (Manual) 12 (0.0-12.0) % Atypical Lymphocytes 6 % Platelet Estimate NORMAL (NORMAL) RBC Morphology ABNORMAL Poikilocytosis 1+ Sodium 134 L D (135-145) mmol/L Potassium 3.6 (3.5-5.1) mmol/L Chloride 104 (98-107) mmol/L Carbon Dioxide 22 (22-30) mmol/L Anion Gap 11.4 (5-15) MEQ/L BUN 8 (7-17) mg/dL Creatinine 0.67 (0.52-1.04) mg/dL Estimated GFR 94.6 ML/MIN Glucose 137 H (74-106) mg/dL Calcium 8.6 (8.4-10.2) mg/dL Total Bilirubin 0.70 (0.2-1.3) mg/dL AST 92 H (14-36) U/L ALT 51 H (0-35) U/L Alkaline Phosphatase 101 (38-126) U/L Serum Total Protein 7.2 (6.3-8.2) g/dL Albumin 3.3 L (3.5-5.0) g/dL Urine Osmolality 162 (.) mOsmol/kg Micro Results-Entire Visit: Accuchecks Date 01/28/24 Date 01/27/24 Date 01/27/24 Date 01/27/24 Time 06:51 Time 21:00 Time 16:22 Time 12:11 - Procedures and Test Procedures and Tests throughout Hospitalization: Therapy Orders & Screens 01/25/24 11:47 PT Eval & Treat (MD Order) ONCE Reason for Eval:: weakness Diagnosis: HYPONATREMIA, WEAKNESS OT Eval and Treat (MD Order) ONCE Comment: Physician Instructions: Reason For Exam: Diagnosis: HYPONATREMIA, WEAKNESS Discharge Exam General Appearance: no apparent distress Neurologic Exam: alert, oriented x 3, cooperative Eye Exam: PERRL Ears, Nose, Throat Exam: normal ENT inspection Neck Exam: normal inspection Respiratory Exam: normal breath sounds, lungs clear Cardiovascular Exam: regular rate/rhythm, normal heart sounds Pelvic Exam: deferred Rectal Exam: deferred Back Exam: normal inspection Extremity Exam: normal inspection Skin Exam: normal color Final Diagnosis/Problem List - Final Discharge Diagnosis/Problem (1) Hyponatremia Current Visit: Yes Status: Resolved Code(s): E87.1 - HYPO-OSMOLALITY AND HYPONATREMIA (2) HTN (hypertension) Current Visit: Yes Status: Chronic Code(s): I10 - ESSENTIAL (PRIMARY) HYPERTENSION (3) Type 2 diabetes mellitus Current Visit: Yes Status: Chronic (4) Cough Current Visit: Yes Status: Resolved Code(s): R05.9 - COUGH, UNSPECIFIED (5) Non compliance w medication regimen Current Visit: Yes Status: Resolved Code(s): Z91.148 - PATIENT'S OTHER NONCOMPL WITH MEDS REGIMEN FOR OTHER REASON (6) Depression Current Visit: Yes Status: Chronic Code(s): F32.A - DEPRESSION, UNSPECIFIED - Discharge Disposition: Home, Self-Care Condition: Stable Prescriptions: New Urea [Ure-Na] 15 gm PO BID 7 Days #14 pkt Continue Amlodipine Besylate 5 mg [Norvasc 5 mg] 5 mg PO DAILY Simvastatin 20Mg [Zocor 20Mg] 20 mg PO DAILY Fluoxetine HCl [Prozac] 40 mg PO DAILY Discontinued Semaglutide [Ozempic] 1 mg SQ WEEKLY Metformin HCl 500 mg [Glucophage 500 MG] 500 mg PO BIDWM Additional Instructions: IF YOU BECOME INTERESTED IN HOME HEALTH SERVICES YOU CAN CALL [facility] CASE MANAG[facility] AT [phone] EXT [phone]. IF YOU BECOME INTERESTED IN HOME DELIVERED MEALS OR NEED OTHER ASSISTANCE AT HOME YOU CAN CONTACT TO [facility] ACO DEPARTMENT AT [phone] EXT [phone] Follow up with: ERA RODRIGUEZ [Primary Care Provider] - 02/03/24 1:40 am YOU BLACK [CONSULTING PHYSICIAN] - 01/31/24 3:30 pm (AT [place] [facility] [address], [place] )
[2024-01-28] MEDS ORDERED: URE-NA PO SCH (10:00)
== END 2024-01-28 10:21 | disposition home or self-care (01) ==
LOC: ED 09:11 → MED SURG 16:45
PROVIDERS: ADMIT Internal Medicine; ATTEND Internal Medicine
DX: E87.1 Hypo-osmolality and hyponatremia (principal); I10 Essential (primary) hypertension; E11.9 Type 2 diabetes mellitus without complications; R05.9 Cough, unspecified; F32.A Depression, unspecified; E78.5 Hyperlipidemia, unspecified; Z91.148 Patient's other noncompliance with medication regimen for other reason; Z79.899 Other long term (current) drug therapy
CPT/HCPCS: 36000; 36415; 71045; 80048; 80053; 80061; 81001; 82947; 83036; 83605; 83690; 83721; 83930; 83935; 84295; 84300; 84443; 84484; 85025; 93005; 93041; 93268; 94760; 96360; 97110; 97161; 97165; 97530; 97535; 99285; G0378; Q3014; J1650; A9270-GY